=== PATIENT | male | born 1980 | race Caucasian/White ===

== ENCOUNTER 2020-10-25 07:03 | Emergency (ER) | payer BC ==
[~2020-10-25] VITALS: Ht 167.6 cm; Wt 68.0 kg
[2020-10-25 07:16] VITALS: BP_SYST 146
[2020-10-25 08:29] LABS: BASOPHILS % (AUTO) 0.6 % (0.0-2.0); EOSINOPHILS # (AUTO) 0.1 K/uL (0.0-0.4); EOSINOPHILS % (AUTO) 0.9 % (0.0-4.0); HEMATOCRIT 41.8 % (36-54); LYMPHOCYTES # (AUTO) 1.1 K/uL (1.0-5.5); LYMPHOCYTES % (AUTO) 14.7 % (20.5-51.5); MEAN CORPUSCULAR HEMOGLOBIN 29 pg (27-31); MEAN CORPUSCULAR HGB CONC 34 % (32-36); MEAN CORPUSCULAR VOLUME 87 fL (79.0-98.0); MONOCYTES # (AUTO) 0.5 K/uL (0.0-1.0); MONOCYTES % (AUTO) 6.7 % (1.7-9.3); NEUTROPHILS # (AUTO) 5.9 K/uL (1.8-7.7); NEUTROPHILS % (AUTO) 77.1 % (40.0-70.0); PLATELET COUNT (AUTO) 180 K/uL (130-430); RED BLOOD CELL COUNT(AUTO) 4.81 MIL/uL (4.2-6.2); WHITE BLOOD COUNT (AUTO) 7.7 K/uL (4.8-10.8)
[2020-10-25] MEDS ORDERED: IOHEXOL 350 mgI/mL, 150 ML INFUS..BTL IV ONE (08:37)
[2020-10-25 08:50] LABS: PROTHROMBIN TIME 10.8 SECS (9.5-12.5)
[2020-10-25 08:55] LABS: ALBUMIN 3.6 g/dL (3.4-4.8); CALCIUM 8.8 mg/dL (8.4-11.0); TOTAL BILIRUBIN 0.6 mg/dL (0.0-1.0)
[2020-10-25] MEDS ORDERED: DIAZEPAM 10 MG/2 ML DISP.SYRIN IVP ONE (09:00)
[2020-10-25 09:21] LABS: POTASSIUM 3.8 mmol/L (3.5-5.1)
--- NOTE | 2020-10-25 09:35 | NUR ---
Patient to ER bed hallway to gown for evaluation. Side rails up.
[2020-10-25] MEDS: NACL 0.9% 1,000 ML IV ONE (09:56)
[2020-10-25] MEDS: MORPHINE 4 MG INJ. 4 MG/ML VIAL IVP ONE ×3 (09:56→10:52)
[2020-10-25] MEDS: DIAZEPAM 5 MG TABLET (VALIUM) PO ONE (09:57)
[2020-10-25] MEDS: KETOROLAC TROMETHAMINE 30 MG VIAL IVP ONE (09:58)
--- NOTE | 2020-10-25 10:00 | NUR ---
Pt walked in to ER with c/o right shoulder pain 12/18 x2 days. Denies any trauma. V/S stable, no acute distress noted.
--- NOTE | 2020-10-25 11:00 | NUR ---
DEIDRA Briggs at bedside examining patient.
[2020-10-25] MEDS ORDERED: IBUP-1969 PO (12:09)
[2020-10-25] MEDS ORDERED: CYCL-10 PO (12:09)
--- NOTE | 2020-10-25 15:30 | NUR ---
Patient given written and verbal discharge instructions and verbalizes understanding. ER MD discussed with patient the results and treatment provided. Patient in stable condition. ID arm band removed. IV catheter removed intact and dressing applied, no active bleeding. Rx of Motrin and Flexeril given. Patient educated on pain management and to follow up with PMD. Pain Scale 0. Opportunity for questions provided and answered. Medication side effect fact sheet provided.
[2020-10-25 16:31] VITALS: BP_SYST 146
== END 2020-10-25 16:31 | disposition home or self-care (01) ==
LOC: SED 07:03
DX: M62.838 Other muscle spasm (principal); M25.511 Pain in right shoulder; Z79.899 Other long term (current) drug therapy
CPT/HCPCS: 36415; 71045; 71275; 73030; 76376; 80053; 83605; 85025; 85610; 86886; 86900; 86901; 93005; 93922; 96361; 96374; 96375; 96376; 99285; J1885; J2270; J7030; Q9967